=== PATIENT | male | born 1985 | race Caucasian/White ===

== ENCOUNTER → 2020-08-27 | Outpatient (CLI) | payer BC, OTHER ==
[2020-08-27 18:15] LABS: U Amphetamine Screen Not Detected; U Barbituate Screen Not Detected; U Benzodiazapine Screen Not Detected; U Buprenorphine Screen Not Detected; U Cannabinoids Screen DETECTED; U Cocaine Screen Not Detected; U Methadone Screen Not Detected; U Methamphetamine Screen Not Detected; U Opiates Screen Not Detected; U Oxycodone Screen Not Detected; U Phencyclidine Screen Not Detected; U Propoxyphene Screen Not Detected
== END | disposition home or self-care (01) ==
LOC: LAB SHORT 16:58 → LAB 16:58
PROVIDERS: Family Medicine
DX: F90.1 Attention-deficit hyperactivity disorder, predominantly hyperactive type (principal)

== ENCOUNTER 2021-11-14 12:14 | Observation (INO) | payer BC, OTHER ==
[~2021-11-14] VITALS: Ht 185.4 cm; Wt 77.9 kg
[2021-11-14 12:57] LABS: BASOPHILS ABSOLUTE AUTO 0.04 K/mm3 (0.00-0.23); BASOPHILS PERCENT AUTO 0 % (0-2); EOSINOPHILS PERCENT AUTO 2 % (0-6); Hematocrit 42.5 % (37.0-53.0); Hemoglobin 14.9 g/dL (13.5-17.5); IMMATURE GRAN ABSOLUTE AUTO 0.01 K/mm3 (0.00-0.10); IMMATURE GRAN PERCENT AUTO 0 % (0-1); LYMPHOCYTES ABSOLUTE AUTO 2.23 K/mm3 (0.84-5.20); LYMPHOCYTES PERCENT AUTO 22 % (21-46); MONOCYTES ABSOLUTE AUTO 1.41 K/mm3 (0.16-1.47); MONOCYTES PERCENT AUTO 14 % (4-13); Mean Corpuscular HGB Conc 35.1 g/dL (31.5-36.5); Mean Corpuscular Volume 86 fL (80-100); NEUTROPHILS ABSOLUTE AUTO 6.34 K/mm3 (1.96-9.15); NEUTROPHILS PERCENT AUTO 62 % (41-73); Platelet Count 279 K/mm3 (150-400); RDW Coefficient Variation 12.4 % (11.7-14.2); RDW Standard Deviation 38.7 fL (35.1-46.3); Red Blood Cell Count 4.97 M/mm3 (4.30-5.90); White Blood Cell Count 10.23 K/mm3 (4.00-11.30)
[2021-11-14 13:21] LABS: Albumin, Blood 4.2 g/dL (3.4-5.0); Albumin/Globulin Ratio 1.3 (0.8-1.8); Bilirubin, Total 0.5 mg/dL (0.1-1.0); Bun/Creatinine Ratio 13.6 (12.0-20.0); Calcium, Blood 9.2 mg/dL (8.5-10.1); Creatinine, Blood 1.18 mg/dL (0.60-1.20); Globulin, Blood 3.2 g/dL (2.2-4.0); Potassium, Blood 3.6 mmol/L (3.5-5.5); Total Protein, Blood 7.4 g/dL (6.4-8.2)
[2021-11-14] MEDS ORDERED: METPHE20CR PO (18:16)
[2021-11-14] MEDS ORDERED: METPHE10 PO (18:19)
[2021-11-14] MEDS ORDERED: ESCI10 PO (18:20)
[2021-11-14] MEDS ORDERED: Budeprion Xl300 MG PO (18:22)
[2021-11-14] MEDS ORDERED: METHYLPHENIDATE20 M1 PO (19:01)
[2021-11-14] MEDS ORDERED: GABA600 PO (23:12)
[2021-11-14 23:59] LABS: SARS-Cov-2 (COVID-19) PCR, MMC NEGATIVE (NEGATIVE)
[2021-11-15 04:11] LABS: BASOPHILS ABSOLUTE AUTO 0.05 K/mm3 (0.00-0.23); BASOPHILS PERCENT AUTO 1 % (0-2); EOSINOPHILS ABSOLUTE AUTO 0.29 K/mm3 (0.00-0.68); EOSINOPHILS PERCENT AUTO 3 % (0-6); Hematocrit 40.7 % (37.0-53.0); Hemoglobin 14.1 g/dL (13.5-17.5); IMMATURE GRAN ABSOLUTE AUTO 0.02 K/mm3 (0.00-0.10); IMMATURE GRAN PERCENT AUTO 0 % (0-1); LYMPHOCYTES ABSOLUTE AUTO 2.18 K/mm3 (0.84-5.20); LYMPHOCYTES PERCENT AUTO 26 % (21-46); MONOCYTES ABSOLUTE AUTO 1.09 K/mm3 (0.16-1.47); MONOCYTES PERCENT AUTO 13 % (4-13); Mean Corpuscular HGB 29.8 pg (26.0-34.0); Mean Corpuscular HGB Conc 34.6 g/dL (31.5-36.5); Mean Corpuscular Volume 86 fL (80-100); Mean Platelet Volume 10.1 fL (9.1-12.4); NEUTROPHILS ABSOLUTE AUTO 4.93 K/mm3 (1.96-9.15); NEUTROPHILS PERCENT AUTO 58 % (41-73); Platelet Count 234 K/mm3 (150-400); RDW Coefficient Variation 12.2 % (11.7-14.2); RDW Standard Deviation 38.8 fL (35.1-46.3); Red Blood Cell Count 4.73 M/mm3 (4.30-5.90); White Blood Cell Count 8.56 K/mm3 (4.00-11.30)
[2021-11-15 04:30] LABS: Albumin, Blood 3.4 g/dL (3.4-5.0); Albumin/Globulin Ratio 1.1 (0.8-1.8); Bilirubin, Total 0.3 mg/dL (0.1-1.0); Bun/Creatinine Ratio 17.1 (12.0-20.0); Calcium, Blood 8.7 mg/dL (8.5-10.1); Creatinine, Blood 1.05 mg/dL (0.60-1.20); Globulin, Blood 3.2 g/dL (2.2-4.0); Potassium, Blood 3.8 mmol/L (3.5-5.5); Total Protein, Blood 6.6 g/dL (6.4-8.2)
--- NOTE | 2021-11-15 05:23 | NUR ---
SHIFT SUMMARY PT A&OX4, PLEASANT AND COOPERATIVE. MEDICATED FOR PAIN ONCE THIS SHIFT WITH TORADOL. NPO SINCE 0000. INDEPENDENT IN ROOM. PICTURES TAKEN OF L HAND, AND PLACED IN CHART. CALLS APPROPRIATELY, CALL LIGHT WITHIN REACH.
--- NOTE | 2021-11-15 14:31 | NUR ---
DR JOHNSON IN TO SEE PT GAVE VERBAL ORDERS THAT PT MAY EAT AND BE DC'D ON 2 WEEKS OF PO ABX PER DR ORTIZ CHOOSING. PT TO FOLLOW UP W/DR JOHNSON ON SUNDAY 11/19.
[2021-11-15] MEDS ORDERED: SULTRIDS PO (15:28)
--- NOTE | 2021-11-15 15:37 | NUR ---
DISCHARGED DC'D IV, CATHETER INTACT. DR ORTIZ CALLED BACTRIM PRESCRIPTION IN TO [facility] PER PT REQUEST. REVIEWED DC INSTRUCTIONS W/PT; VERBALIZED UNDERSTANDING. PT LEAVING UNIT BY AMBULATION W/POSSESSIONS AND DC PAPERWORK IN HAND, ACCOMPANIED BY S.O.
== END 2021-11-15 15:42 | disposition home or self-care (01) ==
LOC: ER 12:14 → SURS 12:15
PROVIDERS: Orthopaedic Surgery; Physician Assistant; ADMIT Family Medicine
DX: L03.114 Cellulitis of left upper limb (principal); L02.512 Cutaneous abscess of left hand; F17.200 Nicotine dependence, unspecified, uncomplicated; F90.9 Attention-deficit hyperactivity disorder, unspecified type; Z20.822 Contact with and (suspected) exposure to COVID-19
CPT/HCPCS: 36415; 73130; 80053; 85025; 90471; 90714; 96365; 96366; 96375; 96376; 99284-25; A9270; G0378; J1885; J3370; J7050; U0004